=== PATIENT | male | born 1990 | race American Indian/Alaskan Native ===

== ENCOUNTER 2017-01-04 08:49 | Emergency (ER) | payer MEDICAID ==
[2017-01-04 09:03] VITALS: BP 127/84
[2017-01-04] MEDS ORDERED: DUONEB 0.5 MG-3 MG/3 ML SOLN IH ONE (09:37)
[2017-01-04] MEDS ORDERED: DELTASONE PO ONE (09:37)
--- NOTE | 2017-01-04 09:56 | XRay Report ---
ROUTINE CHEST, TWO VIEWS: HISTORY: chest pain. The trachea, heart, mediastinal contour, lung gomez and bony thorax are unremarkable. IMPRESSION: Unremarkable chest x-ray.
--- NOTE | 2017-01-04 10:41 | Emergency Department Report ---
Entered by MARCY CAN, acting as scribe for BRYANT ROGERS NP. - General Chief Complaint: Upper Respiratory Infection Stated Complaint: COLD/BLOOD IN MUCUS Time Seen by Provider: 01/04/17 09:32 Source: patient Mode of arrival: Ambulatory Limitations: No Limitations - History of Present Illness Initial Comments: 26 year old male with a PMHx of asthma presents to the ED of a cough with moderate amounts of blood in sputum secondary to nasal congestion that began one week ago. Reports that he felt a "bubbling" sensation in his chest last night. Patient states that he usually have two upper respiratory infections a year, but this episode he had blood in nasal mucous and sputum with cough. Associated symptoms includes wheezing and rhinorrhea, but he denies chest pain, fever/chills, nausea, vomiting, throat pain, and headaches. Notes that is currently out of refills for inhaler. CHICO TREJO Complaint: cough (with blood in sputum) Onset/Timin -: week(s) Severity: mild Quality: other ("bubbling" sensation in chest) Consistency: constant Context: other Associated Symptoms: rhinorrhea, nasal congestion, cough (with blood in sputum) , other (wheezing). denies: fever, chills, headache, sore throat, stiff neck, chest pain, nausea, vomiting Treatments Prior to Arrival: none - Related Data Previous Rx's Medication Instructions Recorded Last Taken Type ALBUTEROL NEB's [Proventil 0.083% 2.5 mg IH QID PRN #25 neb 01/04/17 Unknown Rx NEBS] Albuterol Sulfate [Ventolin HFA] 2 puff IH Q4H PRN #1 hfa.aer.ad 01/04/17 Unknown Rx Azithromycin [Zithromax] 250 mg PO DAILY #6 tablet 01/04/17 Unknown Rx Benzonatate [Tessalon Perles] 100 mg PO Q8HR PRN #12 capsule 01/04/17 Unknown Rx methylPREDNISolone [Medrol] 4 mg PO DAILY #1 tab.ds.pk 01/04/17 Unknown Rx Allergies Allergy/AdvReac Type Severity Reaction Status Date / Time No Known Allergies Allergy Unverified 02/27/14 16:58 ED Review of Systems Comment: All other systems reviewed and negative Constitutional: denies: chills, fever ENT: denies: throat pain Respiratory: cough (with blood in sputum), wheezing Cardiovascular: denies: chest pain (notes "bubbling" sensation in chest) Gastrointestinal: denies: nausea, vomiting Neurological: denies: headache ED Past Medical Hx - Past Medical History Previous Medical History?: Yes Hx Asthma: Yes - Surgical History Past Surgical History?: No - Social History Smoking Status: Never Smoker Substance Use Type: None - Medications Home Medications: Home Medications Medication Instructions Recorded Confirmed Last Taken Type ALBUTEROL NEB's [Proventil 0.083% 2.5 mg IH QID PRN #25 neb 01/04/17 Unknown Rx NEBS] Albuterol Sulfate [Ventolin HFA] 2 puff IH Q4H PRN #1 hfa.aer.ad 01/04/17 Unknown Rx Azithromycin [Zithromax] 250 mg PO DAILY #6 tablet 01/04/17 Unknown Rx Benzonatate [Tessalon Perles] 100 mg PO Q8HR PRN #12 capsule 01/04/17 Unknown Rx methylPREDNISolone [Medrol] 4 mg PO DAILY #1 tab.ds.pk 01/04/17 Unknown Rx ED Physical Exam - General Limitations: No Limitations General appearance: alert, in no apparent distress - Head Head exam: Present: atraumatic, normocephalic - Eye Eye exam: Present: normal appearance, PERRL, EOMI - ENT ENT exam: Present: normal exam, normal orophraynx, mucous membranes moist - Neck Neck exam: Present: normal inspection, full ROM. Absent: tenderness, lymphadenopathy - Respiratory Respiratory exam: Present: wheezes (inspiratory and expiratory wheezing Bilaterally). Absent: rales, rhonchi, stridor - Cardiovascular Cardiovascular Exam: Present: regular rate, normal rhythm - GI/Abdominal GI/Abdominal exam: Present: soft. Absent: distended, tenderness, guarding, rebound, rigid - Extremities Exam Extremities exam: Present: normal inspection, full ROM - Back Exam Back exam: Present: normal inspection, full ROM - Neurological Exam Neurological exam: Present: alert, oriented X3 - Psychiatric Psychiatric exam: Present: normal affect, normal mood - Skin Skin exam: Present: warm, dry, intact ED Course Vital Signs 01/04/17 01/04/17 01/04/17 09:00 10:12 10:21 Temperature 98.5 F Pulse Rate 80 92 H Respiratory 16 20 18 Rate Blood Pressure 127/84 O2 Sat by Pulse 98 94 Oximetry - Reevaluation(s) Reevaluation #1: 01/04/17 10:33 PT aware of XR result and plan of care. Pt's lung sounds improved but still has juan manuel exp wheezing. PT offered repeat neb but pt refused. PT States he feels better. PT states he has nebulizer at home. PT given strict return precautions. Reevaluation #2: 01/04/17 10:41 Pt's pulse ox 97% on RA and hr 86. - Pulse Oximetry Interpretation Digit-Finger Initial Pulse Oximetry Readin Actions Taken: none ED Medical Decision Making - Radiology Data Radiology results: report reviewed CXR-Nap - Medical Decision Making Given pt's hx of asthma and that he had a productive cough this morning with some bloody mucous, will treat as complex bronchitis with zithromax. - Differential Diagnosis asthma, uri, bronchitis Critical Care Time: No ED Disposition Clinical Impression: Bronchitis, Asthma exacerbation Disposition: DISCHARGED TO HOME OR SELFCARE Is pt being admited?: No Does the pt Need Aspirin: No Condition: Stable Instructions: Asthma (ED), Acute Bronchitis (ED) Prescriptions: ALBUTEROL NEB's [Proventil 0.083% NEBS] 2.5 mg IH QID PRN #25 neb PRN Reason: Wheezing Albuterol Sulfate [Ventolin HFA] 2 puff IH Q4H PRN #1 hfa.aer.ad PRN Reason: Shortness Of Breath Azithromycin [Zithromax] 250 mg PO DAILY #6 tablet Benzonatate [Tessalon Perles] 100 mg PO Q8HR PRN #12 capsule PRN Reason: Cough methylPREDNISolone [Medrol] 4 mg PO DAILY #1 tab.ds.pk Referrals: PRIMARY CAREMD [Primary Care Provider] - 3-5 Days LG OROZCO MD [Staff Physician] - 3-5 Days [facility] [Outside] - 3-5 Days [facility] [Outside] - 3-5 Days Time of Disposition: 10:36 This documentation as recorded by the JUAN JOSÉ tirado JASMINE,accurately reflects the service I personally performed and the decisions made by ,BRYANT ROGERS NP.
== END 2017-01-04 10:46 | disposition home or self-care (01) ==
LOC: ED 08:49
DX: J45.901 Unspecified asthma with (acute) exacerbation (principal)
CPT/HCPCS: 71020; 94640; 99283; J7512

== ENCOUNTER 2017-11-10 23:35 | Emergency (ER) | payer MEDICAID ==
[2017-11-11] MEDS ORDERED: TYLENOL ONE (00:52)
[2017-11-11] MEDS ORDERED: TYLENOL PO ONE (00:53)
--- NOTE | 2017-11-11 11:06 | Emergency Department Report ---
- General Chief complaint: Wound/Laceration Stated complaint: ABCESS IN GROIN AREA Time Seen by Provider: 11/11/17 10:54 Source: patient Mode of arrival: Ambulatory Limitations: No Limitations - History of Present Illness Initial comments: This is a 27-year-old male nontoxic, well nourished in appearance, no acute signs of distress presents to the ED with c/o of abscess to the left buttock region x1 week. Patient stated has history of this abscess in the same region but stated that he always refused incision and drainage. Patient stated he takes antibiotics and he resolves by itself. Patient denies any fever, chills, headache, nausea, vomiting, chest pain, shortness of breathe, abdominal pain, or back pain. Patient denies any allergies or PMH besides asthma. MD complaint: abscess/boil -: week(s) (1) Location: buttocks (left) Severity: mild Severity scale (0 -10): 8 Quality: aching Consistency: constant Improves with: none Worsens with: none Context: none Associated symptoms: denies other symptoms Treatments Prior to Arrival: none - Related Data Previous Rx's Medication Instructions Recorded Last Taken Type ALBUTEROL NEB's [Proventil 0.083% 2.5 mg IH QID PRN #25 neb 01/04/17 Unknown Rx NEBS] Albuterol Sulfate [Ventolin HFA] 2 puff IH Q4H PRN #1 hfa.aer.ad 01/04/17 Unknown Rx Azithromycin [Zithromax] 250 mg PO DAILY #6 tablet 01/04/17 Unknown Rx Benzonatate [Tessalon Perles] 100 mg PO Q8HR PRN #12 capsule 01/04/17 Unknown Rx methylPREDNISolone [Medrol] 4 mg PO DAILY #1 tab.ds.pk 01/04/17 Unknown Rx Clindamycin [Clindamycin CAP] 300 mg PO Q8H 7 Days cap 11/11/17 Unknown Rx Ibuprofen [Motrin] 600 mg PO Q8H PRN #30 tablet 11/11/17 Unknown Rx Allergies Allergy/AdvReac Type Severity Reaction Status Date / Time No Known Allergies Allergy Unverified 02/27/14 16:58 Abscess Boil HPI - HPI Chief Complaint: Wound/Laceration Stated Complaint: ABCESS IN GROIN AREA Time Seen by Provider: 02/14/18 10:54 Home Medications: Previous Rx's Medication Instructions Recorded Last Taken Type ALBUTEROL NEB's [Proventil 0.083% 2.5 mg IH QID PRN #25 neb 01/04/17 Unknown Rx NEBS] Albuterol Sulfate [Ventolin HFA] 2 puff IH Q4H PRN #1 hfa.aer.ad 01/04/17 Unknown Rx Azithromycin [Zithromax] 250 mg PO DAILY #6 tablet 01/04/17 Unknown Rx Benzonatate [Tessalon Perles] 100 mg PO Q8HR PRN #12 capsule 01/04/17 Unknown Rx methylPREDNISolone [Medrol] 4 mg PO DAILY #1 tab.ds.pk 01/04/17 Unknown Rx Clindamycin [Clindamycin CAP] 300 mg PO Q8H 7 Days cap 11/11/17 Unknown Rx Ibuprofen [Motrin] 600 mg PO Q8H PRN #30 tablet 11/11/17 Unknown Rx Allergies/Adverse Reactions: Allergies Allergy/AdvReac Type Severity Reaction Status Date / Time No Known Allergies Allergy Unverified 02/27/14 16:58 ED Review of Systems ROS: Stated complaint: ABCESS IN GROIN AREA Other details as noted in HPI Constitutional: denies: chills, fever Eyes: denies: eye pain, eye discharge, vision change ENT: denies: ear pain, throat pain Respiratory: denies: cough, shortness of breath, wheezing Cardiovascular: denies: chest pain, palpitations Endocrine: no symptoms reported Gastrointestinal: denies: abdominal pain, nausea, diarrhea Genitourinary: denies: urgency, dysuria Musculoskeletal: denies: back pain, joint swelling, arthralgia Skin: denies: rash, lesions Neurological: denies: headache, weakness, paresthesias Psychiatric: denies: anxiety, depression Hematological/Lymphatic: denies: easy bleeding, easy bruising ED Past Medical Hx - Past Medical History Previous Medical History?: Yes Hx Asthma: Yes - Surgical History Past Surgical History?: No - Social History Smoking Status: Former Smoker Substance Use Type: None - Medications Home Medications: Home Medications Medication Instructions Recorded Confirmed Last Taken Type ALBUTEROL NEB's [Proventil 0.083% 2.5 mg IH QID PRN #25 neb 01/04/17 Unknown Rx NEBS] Albuterol Sulfate [Ventolin HFA] 2 puff IH Q4H PRN #1 hfa.aer.ad 01/04/17 Unknown Rx Azithromycin [Zithromax] 250 mg PO DAILY #6 tablet 01/04/17 Unknown Rx Benzonatate [Tessalon Perles] 100 mg PO Q8HR PRN #12 capsule 01/04/17 Unknown Rx methylPREDNISolone [Medrol] 4 mg PO DAILY #1 tab.ds.pk 01/04/17 Unknown Rx Clindamycin [Clindamycin CAP] 300 mg PO Q8H 7 Days cap 11/11/17 Unknown Rx Ibuprofen [Motrin] 600 mg PO Q8H PRN #30 tablet 11/11/17 Unknown Rx ED Physical Exam - General Limitations: No Limitations General appearance: alert, in no apparent distress - Head Head exam: Present: atraumatic, normocephalic - Eye Eye exam: Present: normal appearance - ENT ENT exam: Present: mucous membranes moist - Neck Neck exam: Present: normal inspection - Respiratory Respiratory exam: Present: normal lung sounds bilaterally. Absent: respiratory distress - Cardiovascular Cardiovascular Exam: Present: regular rate, normal rhythm. Absent: systolic murmur, diastolic murmur, rubs, gallop - GI/Abdominal GI/Abdominal exam: Present: soft, normal bowel sounds - Rectal Rectal exam: Present: deferred - Extremities Exam Extremities exam: Present: normal inspection - Back Exam Back exam: Present: normal inspection - Neurological Exam Neurological exam: Present: alert, oriented X3 - Psychiatric Psychiatric exam: Present: normal affect, normal mood - Skin Skin exam: Present: warm, dry, intact, normal color. Absent: rash - Other Other exam information: Swelling with induration and fluctuance to the left buttock region. No pus or drainage noted. ED Course Vital Signs 11/11/17 11/11/17 00:45 00:55 Temperature 99.5 F Pulse Rate 89 Respiratory 18 18 Rate Blood Pressure 121/80 O2 Sat by Pulse 95 Oximetry - Reevaluation(s) Reevaluation #1: 11/11/17 11:02 Patient is speaking in full sentences with no signs of distress noted. ED Medical Decision Making - Medical Decision Making This is a 27-year-old male that presents with abscess. Patient is stable and was examined by me. Patient refused incision and drainage even after me explaining and educating to the patient that he must get an I/D for proper treatment. Patient still refused and stated he will start the antibiotics and if not resolved he will then return for I/D. Patient is discharged with Clinda. Patient was instructed to Follow-up with a primary care doctor in 3-5 days or if symptoms worsen and continue return to emergency room as soon as possible. At time of discharge, the patient does not seem toxic or ill in appearance. No acute signs of distress noted. Patient agrees to discharge treatment plan of care. No further questions noted by the patient. Critical care attestation.: If time is entered above; I have spent that time in minutes in the direct care of this critically ill patient, excluding procedure time. ED Disposition Clinical Impression: Abscess Disposition: DC-07 LEFT AGAINST MED ADVICE Is pt being admited?: No Does the pt Need Aspirin: No Condition: Stable Instructions: Clindamycin (By mouth), Ibuprofen (By mouth), Abscess (ED) Additional Instructions: Follow-up with a primary care doctor in 3-5 days or if symptoms worsen and continue return to emergency room as soon as possible. If symptoms worse you must return to the ED for incision and drainage Apply warm compressors to the area. Prescriptions: Clindamycin [Clindamycin CAP] 300 mg PO Q8H 7 Days cap Ibuprofen [Motrin] 600 mg PO Q8H PRN #30 tablet PRN Reason: Pain Referrals: MELYSSA GONSALEZ MD [Primary Care Provider] - 3-5 Days BENJAMIN ZAYAS MD [Staff Physician] - 3-5 Days [facility] [Outside] - 3-5 Days [facility] [Outside] - 3-5 Days Forms: Work/School Release Form(ED), AMA Form
[2017-11-11 11:41] VITALS: BP 118/74
== END 2017-11-11 11:35 | disposition left against medical advice (07) ==
LOC: ED 23:35
DX: L02.31 Cutaneous abscess of buttock (principal); J45.909 Unspecified asthma, uncomplicated
CPT/HCPCS: 99282

== ENCOUNTER 2017-12-25 12:49 | Emergency (ER) | payer MEDICAID ==
--- NOTE | 2017-12-25 15:56 | Emergency Department Report ---
ED Medical Clearance HPI - General Chief complaint: Medical Clearance Stated complaint: ALLERGIES/ASTHMA Time Seen by Provider: 12/25/17 15:48 Source: patient Mode of arrival: Ambulatory Home medications: Previous Rx's Medication Instructions Recorded Last Taken Type ALBUTEROL NEB's [Proventil 0.083% 2.5 mg IH QID PRN #25 neb 01/04/17 Unknown Rx NEBS] Albuterol Sulfate [Ventolin HFA] 2 puff IH Q4H PRN #1 hfa.aer.ad 01/04/17 Unknown Rx Azithromycin [Zithromax] 250 mg PO DAILY #6 tablet 01/04/17 Unknown Rx Benzonatate [Tessalon Perles] 100 mg PO Q8HR PRN #12 capsule 01/04/17 Unknown Rx methylPREDNISolone [Medrol] 4 mg PO DAILY #1 tab.ds.pk 01/04/17 Unknown Rx Clindamycin [Clindamycin CAP] 300 mg PO Q8H 7 Days cap 11/11/17 Unknown Rx Ibuprofen [Motrin] 600 mg PO Q8H PRN #30 tablet 11/11/17 Unknown Rx Albuterol Sulfate [Ventolin Hfa] 1 puff IH Q4H PRN #1 hfa.aer.ad 12/25/17 Unknown Rx Fluticasone [Flonase] 1 spray NS QDAY PRN #1 bottle 12/25/17 Unknown Rx Loratadine [Claritin] 10 mg PO DAILY #20 tablet 12/25/17 Unknown Rx predniSONE [Deltasone] 40 mg PO QDAY #10 tab 12/25/17 Unknown Rx Allergies/Adverse reactions: Allergies Allergy/AdvReac Type Severity Reaction Status Date / Time No Known Allergies Allergy Unverified 02/27/14 16:58 ED Review of Systems ROS: Stated complaint: ALLERGIES/ASTHMA Other details as noted in HPI ED Past Medical Hx - Past Medical History Hx Asthma: Yes - Surgical History Past Surgical History?: No - Social History Smoking Status: Never Smoker Substance Use Type: None - Medications Home Medications: Home Medications Medication Instructions Recorded Confirmed Last Taken Type ALBUTEROL NEB's [Proventil 0.083% 2.5 mg IH QID PRN #25 neb 01/04/17 Unknown Rx NEBS] Albuterol Sulfate [Ventolin HFA] 2 puff IH Q4H PRN #1 hfa.aer.ad 01/04/17 Unknown Rx Azithromycin [Zithromax] 250 mg PO DAILY #6 tablet 01/04/17 Unknown Rx Benzonatate [Tessalon Perles] 100 mg PO Q8HR PRN #12 capsule 01/04/17 Unknown Rx methylPREDNISolone [Medrol] 4 mg PO DAILY #1 tab.ds.pk 01/04/17 Unknown Rx Clindamycin [Clindamycin CAP] 300 mg PO Q8H 7 Days cap 11/11/17 Unknown Rx Ibuprofen [Motrin] 600 mg PO Q8H PRN #30 tablet 11/11/17 Unknown Rx Albuterol Sulfate [Ventolin Hfa] 1 puff IH Q4H PRN #1 hfa.aer.ad 12/25/17 Unknown Rx Fluticasone [Flonase] 1 spray NS QDAY PRN #1 bottle 12/25/17 Unknown Rx Loratadine [Claritin] 10 mg PO DAILY #20 tablet 12/25/17 Unknown Rx predniSONE [Deltasone] 40 mg PO QDAY #10 tab 12/25/17 Unknown Rx ED Physical Exam - General Limitations: No Limitations ED Course Vital Signs 12/25/17 13:03 Temperature 98.1 F Pulse Rate 86 Respiratory 16 Rate Blood Pressure 140/85 O2 Sat by Pulse 97 Oximetry ED Medical Decision Making - Medical Decision Making A/P: Medication refill 1-refill on albuterol 2-Claritin, Flonase when necessary 3-vital signs stable for discharge, follow up with primary care ED Disposition Clinical Impression: Medication refill Disposition: DC- TO HOME OR SELFCARE Is pt being admited?: No Does the pt Need Aspirin: No Condition: Stable Instructions: Allergic Rhinitis (ED) Prescriptions: Albuterol Sulfate [Ventolin Hfa] 1 puff IH Q4H PRN #1 hfa.aer.ad PRN Reason: Wheezing Fluticasone [Flonase] 1 spray NS QDAY PRN #1 bottle PRN Reason: Congestion Loratadine [Claritin] 10 mg PO DAILY #20 tablet predniSONE [Deltasone] 40 mg PO QDAY #10 tab Referrals: [facility] [Outside] - 3-5 Days [facility] [Outside] - 3-5 Days Forms: Work/School Release Form(ED), Accompanied Note Time of Disposition: 15:54
[2017-12-25 16:09] VITALS: BP 124/81
== END 2017-12-25 16:11 | disposition home or self-care (01) ==
LOC: ED 12:49
DX: J45.909 Unspecified asthma, uncomplicated (principal); Z76.0 Encounter for issue of repeat prescription
CPT/HCPCS: 99282

== ENCOUNTER 2018-03-23 07:15 | Emergency (ER) | payer MEDICAID ==
[2018-03-23 07:58] VITALS: BP 127/89
--- NOTE | 2018-03-23 10:14 | Emergency Department Report ---
ED Recheck HPI - General Chief Complaint: Medical Clearance Stated Complaint: ASTHMA Time Seen by Provider: 03/23/18 09:57 Source: patient Mode of arrival: Ambulatory Limitations: No Limitations - History of Present Illness Initial Comments: Patient here for refill on asthma medication.. He is asymptomatic but said he ran out of his asthma medication and usually when the pollen is high he gets asthma flareup and he does not want to get it and does not have his medication. He does not have a primary care physician. Patient takes albuterol. Denies any pain, shortness of breath, chest pain, cough or wheezing. Denies any nasal congestion or runny nose. Denies any nausea or vomiting. Denies any fever or chills. Patient medical record reviewed and he has been here in the past since 2013 for asthma. Complaint: medication refill request Onset/Timin (and out of medication) Initial Visit For: other (none) Returns Today for: request for prescription Description of Abnormal Result: He is here for asthma medication refill Symptoms Since Prior Visit: no new symptoms Context: ran out of medication Associated Symptoms: none Treatments Prior to Arrival: other (none) - Related Data Previous Rx's Medication Instructions Recorded Last Taken Type ALBUTEROL NEB's [Proventil 0.083% 2.5 mg IH QID PRN #25 neb 01/04/17 Unknown Rx NEBS] Azithromycin [Zithromax] 250 mg PO DAILY #6 tablet 01/04/17 Unknown Rx Benzonatate [Tessalon Perles] 100 mg PO Q8HR PRN #12 capsule 01/04/17 Unknown Rx methylPREDNISolone [Medrol] 4 mg PO DAILY #1 tab.ds.pk 01/04/17 Unknown Rx Clindamycin [Clindamycin CAP] 300 mg PO Q8H 7 Days cap 11/11/17 Unknown Rx Ibuprofen [Motrin] 600 mg PO Q8H PRN #30 tablet 11/11/17 Unknown Rx Albuterol Sulfate [Ventolin Hfa] 1 puff IH Q4H PRN #1 hfa.aer.ad 12/25/17 Unknown Rx Fluticasone [Flonase] 1 spray NS QDAY PRN #1 bottle 12/25/17 Unknown Rx Loratadine [Claritin] 10 mg PO DAILY #20 tablet 12/25/17 Unknown Rx predniSONE [Deltasone] 40 mg PO QDAY #10 tab 03/30/18 Unknown Rx Albuterol Sulfate [Ventolin HFA] 2 puff IH Q6H PRN #1 hfa.aer.ad 03/23/18 Unknown Rx Allergies Allergy/AdvReac Type Severity Reaction Status Date / Time No Known Allergies Allergy Unverified 02/27/14 16:58 ED Review of Systems ROS: Stated complaint: ASTHMA Other details as noted in HPI Constitutional: denies: chills, fever Eyes: denies: eye discharge ENT: denies: ear pain, throat pain, congestion Respiratory: denies: cough, shortness of breath, SOB with exertion, SOB at rest , stridor, wheezing Cardiovascular: denies: chest pain, palpitations, dyspnea on exertion, edema, syncope Musculoskeletal: denies: back pain, arthralgia Skin: denies: rash, lesions Neurological: denies: headache ED Past Medical Hx - Past Medical History Previous Medical History?: Yes Hx Asthma: Yes - Surgical History Past Surgical History?: No - Family History Family history: asthma, hypertension - Social History Smoking Status: Never Smoker Substance Use Type: None - Medications Home Medications: Home Medications Medication Instructions Recorded Confirmed Last Taken Type ALBUTEROL NEB's [Proventil 0.083% 2.5 mg IH QID PRN #25 neb 01/04/17 Unknown Rx NEBS] Azithromycin [Zithromax] 250 mg PO DAILY #6 tablet 01/04/17 Unknown Rx Benzonatate [Tessalon Perles] 100 mg PO Q8HR PRN #12 capsule 01/04/17 Unknown Rx methylPREDNISolone [Medrol] 4 mg PO DAILY #1 tab.ds.pk 01/04/17 Unknown Rx Clindamycin [Clindamycin CAP] 300 mg PO Q8H 7 Days cap 11/11/17 Unknown Rx Ibuprofen [Motrin] 600 mg PO Q8H PRN #30 tablet 11/11/17 Unknown Rx Albuterol Sulfate [Ventolin Hfa] 1 puff IH Q4H PRN #1 hfa.aer.ad 12/25/17 Unknown Rx Fluticasone [Flonase] 1 spray NS QDAY PRN #1 bottle 12/25/17 Unknown Rx Loratadine [Claritin] 10 mg PO DAILY #20 tablet 12/25/17 Unknown Rx predniSONE [Deltasone] 40 mg PO QDAY #10 tab 12/25/17 Unknown Rx Albuterol Sulfate [Ventolin HFA] 2 puff IH Q6H PRN #1 hfa.aer.ad 03/23/18 Unknown Rx ED Physical Exam - General Limitations: No Limitations General appearance: alert, in no apparent distress - Head Head exam: Present: atraumatic, normocephalic, normal inspection - Eye Eye exam: Present: normal appearance, PERRL, EOMI Pupils: Present: normal accommodation - ENT ENT exam: Present: normal exam, normal orophraynx, mucous membranes moist, TM's normal bilaterally, normal external ear exam - Neck Neck exam: Present: normal inspection, full ROM. Absent: tenderness, lymphadenopathy - Respiratory Respiratory exam: Present: normal lung sounds bilaterally. Absent: respiratory distress, wheezes, rales, rhonchi, stridor, chest wall tenderness, accessory muscle use, decreased breath sounds, prolonged expiratory - Cardiovascular Cardiovascular Exam: Present: regular rate, normal rhythm, normal heart sounds. Absent: systolic murmur, diastolic murmur - Extremities Exam Extremities exam: Present: normal inspection, full ROM, normal capillary refill , other (no clubbing, cyanosis or edema. +2 pulses to all extremities and no neurovascular compromise). Absent: tenderness, pedal edema, joint swelling, calf tenderness - Neurological Exam Neurological exam: Present: alert, oriented X3, normal gait - Psychiatric Psychiatric exam: Present: normal affect, normal mood - Skin Skin exam: Present: warm, dry, intact, normal color. Absent: rash ED Course Vital Signs 03/23/18 07:55 Temperature 98.2 F Pulse Rate 71 Respiratory 18 Rate Blood Pressure 127/89 O2 Sat by Pulse 98 Oximetry - Reevaluation(s) Reevaluation #1: 03/23/18 10:44 Patient is stable and he did not require any bronchodilator treatment in emergency room because he was not having an asthma flare. ED Recheck MDM - Medical Decision Making This is a 27-year-old male here reports that he has asthma and he ran out of his albuterol and he is here for refill on his medication because he doesn't want to have asthma attack without have an inhaler. He does not have access to primary care and a review of his medical records shows that he's been coming here since 2013 for asthma. Patient is not having any symptoms related to asthma or any other problems he just here for refill. Patient was examined by myself and physical exam is normal. I discussed with him medication and treatment plan and he voiced understanding. I also discussed with him that he needs to follow up with [facility] and I'll give him addressed and phone number to call to schedule appointment to see primary care to manage his chronic asthma. He voiced understanding. A/P 1: Patient with asthma and asymptomatic requiring medication refill and he is here for encounter refill on his albuterol. He is asymptomatic physical exam is normal and I will refill his albuterol. Patient educated on med medication and asthma. Patient discharged home in stable condition. Vital signs are stable, afebrile and is nontoxic in appearance. He said he is feeling fine. Patient instructed to follow up with [facility] in 2-3 days to call and schedule appointment for primary care visits to manage is asthma. He voiced understanding. Discharged home with prescription for albuterol. I told him if he has asthma attack and he does not have access to primary care that he needs to return to the emergency room and he voiced understanding Critical care attestation.: If time is entered above; I have spent that time in minutes in the direct care of this critically ill patient, excluding procedure time. ED Disposition Clinical Impression: Encounter for medication refill Disposition: DC-01 TO HOME OR SELFCARE Is pt being admited?: No Does the pt Need Aspirin: No Condition: Stable Instructions: Asthma (ED) Additional Instructions: These follow-up at [facility] in 2-3 days for primary care to manage her chronic asthma Take albuterol as prescribed but if he finds you use any more than twice a week then he'll need to have primary care reevaluate you to see if he need long acting medication to take daily Increase her fluid intake If he starts to have nasal congestion and runny nose then start taking Zyrtec and Flonase which you will be able to get [id number]. The skin turgor asthma attack Prescriptions: Albuterol Sulfate [Ventolin HFA] 2 puff IH Q6H PRN #1 hfa.aer.ad PRN Reason: cough and wheeze Referrals: [facility] [Outside] - 2-3 Days Forms: Work/School Release Form(ED)
== END 2018-03-23 10:52 | disposition home or self-care (01) ==
LOC: ED 07:15
DX: J45.909 Unspecified asthma, uncomplicated (principal); Z76.0 Encounter for issue of repeat prescription
CPT/HCPCS: 99282

== ENCOUNTER 2018-05-09 04:51 | Emergency (ER) | payer MEDICAID ==
[2018-05-09] MEDS ORDERED: DUONEB *Not for PRN Use IH ONE ×2 (04:54→05:16)
[2018-05-09] MEDS ORDERED: DELTASONE ONE (04:55)
--- NOTE | 2018-05-09 05:13 | Emergency Department Report ---
ED Asthma HPI - General Stated Complaint: ASTHMA Time Seen by Provider: 05/09/18 05:07 - History of Present Illness Initial Comments: 27-year-old man with history of asthma, awakened with wheezing this morning, approximately an hour or 2 prior to arrival, and comes to the emergency department, because he has out of his pump inhaler, which is his usual treatment for asthma attacks. He has not had any fever or chills or diaphoresis , no cough, no sputum production. He is in good general health otherwise, takes no weak in medications, does not smoke. He denies chest pain, and is short of breath only because of his wheezing. He has a prescription for nebulizer, but has not filled due to lack of funds, and requests only refill of pump inhaler because it still medication he can afford at this time. - Related Data Previous Rx's Medication Instructions Recorded Last Taken Type ALBUTEROL NEB's [Proventil 0.083% 2.5 mg IH QID PRN #25 neb 01/04/17 Unknown Rx NEBS] Azithromycin [Zithromax] 250 mg PO DAILY #6 tablet 01/04/17 Unknown Rx Benzonatate [Tessalon Perles] 100 mg PO Q8HR PRN #12 capsule 01/04/17 Unknown Rx methylPREDNISolone [Medrol] 4 mg PO DAILY #1 tab.ds.pk 01/04/17 Unknown Rx Clindamycin [Clindamycin CAP] 300 mg PO Q8H 7 Days cap 11/11/17 Unknown Rx Ibuprofen [Motrin] 600 mg PO Q8H PRN #30 tablet 11/11/17 Unknown Rx Albuterol Sulfate [Ventolin Hfa] 1 puff IH Q4H PRN #1 hfa.aer.ad 12/25/17 Unknown Rx Fluticasone [Flonase] 1 spray NS QDAY PRN #1 bottle 12/25/17 Unknown Rx Loratadine [Claritin] 10 mg PO DAILY #20 tablet 12/25/17 Unknown Rx predniSONE [Deltasone] 40 mg PO QDAY #10 tab 12/25/17 Unknown Rx Albuterol Sulfate [Ventolin HFA] 2 puff IH Q6H PRN #1 hfa.aer.ad 03/23/18 Unknown Rx ALBUTEROL Inhaler [ProAir HFA 2 puff IH QID PRN #2 inhalation 05/09/18 Unknown Rx Inhaler] Prednisone [predniSONE 10 mg 10 mg PO .TAPER #1 tab.ds.pk 05/09/18 Unknown Rx (6-Day Pack, 21 Tabs)] Allergies Allergy/AdvReac Type Severity Reaction Status Date / Time No Known Allergies Allergy Unverified 02/27/14 16:58 ED Review of Systems ROS: Stated complaint: ASTHMA Other details as noted in HPI Comment: All other systems reviewed and negative Constitutional: denies: chills, fever ENT: denies: ear pain, throat pain Respiratory: shortness of breath, wheezing. denies: cough, orthopnea Cardiovascular: denies: chest pain, syncope, paroxysmal nocturnal dyspnea Endocrine: no symptoms reported Gastrointestinal: denies: abdominal pain, nausea, diarrhea Genitourinary: denies: urgency, dysuria Musculoskeletal: denies: back pain, joint swelling, arthralgia Skin: denies: rash, lesions Neurological: denies: headache, weakness, paresthesias Psychiatric: denies: anxiety, depression ED Past Medical Hx - Past Medical History Hx Asthma: Yes - Social History Smoking Status: Never Smoker Substance Use Type: None - Medications Home Medications: Home Medications Medication Instructions Recorded Confirmed Last Taken Type ALBUTEROL NEB's [Proventil 0.083% 2.5 mg IH QID PRN #25 neb 01/04/17 Unknown Rx NEBS] Azithromycin [Zithromax] 250 mg PO DAILY #6 tablet 01/04/17 Unknown Rx Benzonatate [Tessalon Perles] 100 mg PO Q8HR PRN #12 capsule 01/04/17 Unknown Rx methylPREDNISolone [Medrol] 4 mg PO DAILY #1 tab.ds.pk 01/04/17 Unknown Rx Clindamycin [Clindamycin CAP] 300 mg PO Q8H 7 Days cap 11/11/17 Unknown Rx Ibuprofen [Motrin] 600 mg PO Q8H PRN #30 tablet 11/11/17 Unknown Rx Albuterol Sulfate [Ventolin Hfa] 1 puff IH Q4H PRN #1 hfa.aer.ad 12/25/17 Unknown Rx Fluticasone [Flonase] 1 spray NS QDAY PRN #1 bottle 12/25/17 Unknown Rx Loratadine [Claritin] 10 mg PO DAILY #20 tablet 12/25/17 Unknown Rx predniSONE [Deltasone] 40 mg PO QDAY #10 tab 12/25/17 Unknown Rx Albuterol Sulfate [Ventolin HFA] 2 puff IH Q6H PRN #1 hfa.aer.ad 03/23/18 Unknown Rx ALBUTEROL Inhaler [ProAir HFA 2 puff IH QID PRN #2 inhalation 05/09/18 Unknown Rx Inhaler] Prednisone [predniSONE 10 mg 10 mg PO .TAPER #1 tab.ds.pk 05/09/18 Unknown Rx (6-Day Pack, 21 Tabs)] ED Physical Exam - General Limitations: Other (mild shortness of breath, but able to speak full sentences) General appearance: alert, in distress (mild to moderate discomfort secondary to wheezing, but able to speak with minimal difficulty, full sentences) - Head Head exam: Present: atraumatic, normocephalic - Eye Eye exam: Present: PERRL, EOMI - ENT ENT exam: Present: normal exam, mucous membranes moist - Neck Neck exam: Present: normal inspection, full ROM. Absent: tenderness - Respiratory Respiratory exam: Present: normal lung sounds bilaterally, wheezes. Absent: respiratory distress, rales, rhonchi, chest wall tenderness, accessory muscle use - Cardiovascular Cardiovascular Exam: Present: regular rate, normal heart sounds - GI/Abdominal GI/Abdominal exam: Present: soft, normal bowel sounds. Absent: tenderness - Rectal Rectal exam: Present: deferred - Extremities Exam Extremities exam: Present: normal inspection - Back Exam Back exam: Present: normal inspection - Psychiatric Psychiatric exam: Present: normal affect, normal mood - Skin Skin exam: Present: warm, dry, intact ED Course Vital Signs 05/09/18 04:48 Temperature 36.7 C Pulse Rate 79 Respiratory 18 Rate Blood Pressure 110/72 O2 Sat by Pulse 98 Oximetry - Reevaluation(s) Reevaluation #1: 05/09/18 05:11 Improved after inhaled bronchodilation nebulizers with DuoNeb, also medicated with intravenous Solu-Medrol. ED Medical Decision Making - Medical Decision Making This patient has had an uncompensated asthma attack, and comes primarily because he does not have any more of his usual medication, which usually helps, and his last significant attack was approximately 6 weeks ago, when he was treated here. Patient significantly improved with nebulizer, and will be discharged with refill of his albuterol inhaler, and will be placed on a declining dose of prednisone over the next week. Critical care attestation.: If time is entered above; I have spent that time in minutes in the direct care of this critically ill patient, excluding procedure time. ED Disposition Clinical Impression: Asthma exacerbation Qualifiers: Asthma severity: moderate Asthma persistence: unspecified Qualified Code(s): J45.901 - Unspecified asthma with (acute) exacerbation Disposition: TO HOME OR SELFCARE Is pt being admited?: No Does the pt Need Aspirin: No Condition: Stable Instructions: Asthma (ED) Prescriptions: ALBUTEROL Inhaler [ProAir HFA Inhaler] 2 puff IH QID PRN #2 inhalation PRN Reason: Shortness Of Breath Prednisone [predniSONE 10 mg (6-Day Pack, 21 Tabs)] 10 mg PO .TAPER #1 tab.ds.pk Forms: Work/School Release Form(ED) Time of Disposition: 05:15
[2018-05-09] MEDS ORDERED: DELTASONE PO ONE (05:16)
[2018-05-09 05:37] VITALS: BP 117/84
== END 2018-05-09 05:40 | disposition home or self-care (01) ==
LOC: ED 04:51
DX: J45.901 Unspecified asthma with (acute) exacerbation (principal)
CPT/HCPCS: 94640; 99282; J7512

== ENCOUNTER 2018-05-14 13:20 | Emergency (ER) | payer SELFPAY ==
[2018-05-14 13:40] VITALS: BP 121/71
[2018-05-14 14:16] LABS: Bilirubin,Urine NEG (Negative); Blood,Urine NEG (Negative); Color,Urine Amber (Yellow); Mucus,Urine 3+ /HPF; RBC,Urine < 1.0 /HPF (0.0-6.0)
[2018-05-14] MEDS ORDERED: ZITHROMAX PO ONE (16:51)
[2018-05-14] MEDS ORDERED: ZOFRAN ODT PO ONE (16:51)
--- NOTE | 2018-05-14 16:56 | Emergency Department Report ---
ED General Adult HPI - General Chief complaint: Urogenital-Male Stated complaint: LEG PAIN Time Seen by Provider: 05/14/18 16:31 Source: patient Mode of arrival: Ambulatory Limitations: No Limitations - History of Present Illness Initial comments: Patient presents to the ED with a complaint of bilateral groin pain that started yesterday. Patient states he noticed the pain after taking a long walk. He states when he is at rest there is no pain medicine as he walks the pain returns. Patient is also concerned that last month he had unprotected intercourse and wants to be treated for STDs. Patient denies any penile discharge or dysuria. Patient has no other complaints -: Sudden Radiation: non-radiation Severity scale (0 -10): 3 Quality: aching Consistency: intermittent Improves with: rest Worsens with: movement Associated Symptoms: denies other symptoms Treatments Prior to Arrival: none - Related Data Previous Rx's Medication Instructions Recorded Last Taken Type ALBUTEROL NEB's [Proventil 0.083% 2.5 mg IH QID PRN #25 neb 01/04/17 Unknown Rx NEBS] Azithromycin [Zithromax] 250 mg PO DAILY #6 tablet 01/04/17 Unknown Rx Benzonatate [Tessalon Perles] 100 mg PO Q8HR PRN #12 capsule 01/04/17 Unknown Rx methylPREDNISolone [Medrol] 4 mg PO DAILY #1 tab.ds.pk 01/04/17 Unknown Rx Clindamycin [Clindamycin CAP] 300 mg PO Q8H 7 Days cap 11/11/17 Unknown Rx Ibuprofen [Motrin] 600 mg PO Q8H PRN #30 tablet 11/11/17 Unknown Rx Albuterol Sulfate [Ventolin Hfa] 1 puff IH Q4H PRN #1 hfa.aer.ad 12/25/17 Unknown Rx Fluticasone [Flonase] 1 spray NS QDAY PRN #1 bottle 12/25/17 Unknown Rx Loratadine [Claritin] 10 mg PO DAILY #20 tablet 12/25/17 Unknown Rx predniSONE [Deltasone] 40 mg PO QDAY #10 tab 12/25/17 Unknown Rx Albuterol Sulfate [Ventolin HFA] 2 puff IH Q6H PRN #1 hfa.aer.ad 03/23/18 Unknown Rx ALBUTEROL Inhaler [ProAir HFA 2 puff IH QID PRN #2 inhalation 05/09/18 Unknown Rx Inhaler] Prednisone [predniSONE 10 mg 10 mg PO .TAPER #1 tab.ds.pk 05/09/18 Unknown Rx (6-Day Pack, 21 Tabs)] ALBUTEROL Inhaler [ProAir HFA 2 puff IH QID PRN #1 inhalation 05/14/18 Unknown Rx Inhaler] Ibuprofen [Motrin] 800 mg PO Q8HR PRN #30 tablet 05/14/18 Unknown Rx predniSONE [Deltasone] 20 mg PO QDAY #5 tab 05/14/18 Unknown Rx Allergies Allergy/AdvReac Type Severity Reaction Status Date / Time No Known Allergies Allergy Unverified 02/27/14 16:58 ED Review of Systems ROS: Stated complaint: LEG PAIN Other details as noted in HPI Comment: All other systems reviewed and negative Constitutional: denies: chills, fever Eyes: denies: eye pain, eye discharge, vision change ENT: denies: ear pain, throat pain Respiratory: denies: cough, shortness of breath, wheezing Cardiovascular: denies: chest pain, palpitations Endocrine: no symptoms reported Gastrointestinal: denies: abdominal pain, nausea, diarrhea Genitourinary: denies: urgency, dysuria Musculoskeletal: denies: back pain, joint swelling, arthralgia Skin: denies: rash, lesions Neurological: denies: headache, weakness, paresthesias Psychiatric: denies: anxiety, depression Hematological/Lymphatic: denies: easy bleeding, easy bruising ED Past Medical Hx - Past Medical History Previous Medical History?: Yes Hx Asthma: Yes Additional medical history: daniella doherty 11/2017 - Surgical History Past Surgical History?: No - Social History Smoking Status: Never Smoker Substance Use Type: None - Medications Home Medications: Home Medications Medication Instructions Recorded Confirmed Last Taken Type ALBUTEROL NEB's [Proventil 0.083% 2.5 mg IH QID PRN #25 neb 01/04/17 Unknown Rx NEBS] Azithromycin [Zithromax] 250 mg PO DAILY #6 tablet 01/04/17 Unknown Rx Benzonatate [Tessalon Perles] 100 mg PO Q8HR PRN #12 capsule 01/04/17 Unknown Rx methylPREDNISolone [Medrol] 4 mg PO DAILY #1 tab.ds.pk 01/04/17 Unknown Rx Clindamycin [Clindamycin CAP] 300 mg PO Q8H 7 Days cap 11/11/17 Unknown Rx Ibuprofen [Motrin] 600 mg PO Q8H PRN #30 tablet 11/11/17 Unknown Rx Albuterol Sulfate [Ventolin Hfa] 1 puff IH Q4H PRN #1 hfa.aer.ad 12/25/17 Unknown Rx Fluticasone [Flonase] 1 spray NS QDAY PRN #1 bottle 12/25/17 Unknown Rx Loratadine [Claritin] 10 mg PO DAILY #20 tablet 12/25/17 Unknown Rx predniSONE [Deltasone] 40 mg PO QDAY #10 tab 12/25/17 Unknown Rx Albuterol Sulfate [Ventolin HFA] 2 puff IH Q6H PRN #1 hfa.aer.ad 03/23/18 Unknown Rx ALBUTEROL Inhaler [ProAir HFA 2 puff IH QID PRN #2 inhalation 05/09/18 Unknown Rx Inhaler] Prednisone [predniSONE 10 mg 10 mg PO .TAPER #1 tab.ds.pk 05/09/18 Unknown Rx (6-Day Pack, 21 Tabs)] ALBUTEROL Inhaler [ProAir HFA 2 puff IH QID PRN #1 inhalation 05/14/18 Unknown Rx Inhaler] Ibuprofen [Motrin] 800 mg PO Q8HR PRN #30 tablet 05/14/18 Unknown Rx predniSONE [Deltasone] 20 mg PO QDAY #5 tab 05/14/18 Unknown Rx ED Physical Exam - General Limitations: No Limitations General appearance: alert, in no apparent distress - Head Head exam: Present: atraumatic, normocephalic - Eye Eye exam: Present: normal appearance - ENT ENT exam: Present: mucous membranes moist - Neck Neck exam: Present: normal inspection - Respiratory Respiratory exam: Present: normal lung sounds bilaterally. Absent: respiratory distress - Cardiovascular Cardiovascular Exam: Present: regular rate, normal rhythm. Absent: systolic murmur, diastolic murmur, rubs, gallop - GI/Abdominal GI/Abdominal exam: Present: soft, normal bowel sounds - Rectal Rectal exam: Present: deferred - Extremities Exam Extremities exam: Present: normal inspection - Back Exam Back exam: Present: normal inspection - Neurological Exam Neurological exam: Present: alert, oriented X3, CN II-XII intact. Absent: motor sensory deficit - Psychiatric Psychiatric exam: Present: normal affect, normal mood - Skin Skin exam: Present: warm, dry, intact, normal color. Absent: rash - Other Other exam information: Palpation of the inguinal ligaments due to patient's jeans does elicit tenderness to the inguinal ligaments bilaterally No inguinal lymphadenopathy present on exam ED Course Vital Signs 05/14/18 13:33 Temperature 98.3 F Pulse Rate 94 H Respiratory 18 Rate Blood Pressure 121/71 O2 Sat by Pulse 98 Oximetry ED Medical Decision Making - Medical Decision Making Discussed with patient the plan of care Discussed safe sex practices with the patient Patient states they've out of his albuterol inhaler was wondering if we can prescribe it for him Critical care attestation.: If time is entered above; I have spent that time in minutes in the direct care of this critically ill patient, excluding procedure time. ED Disposition Clinical Impression: Groin pain Disposition: DC-01 TO HOME OR SELFCARE Is pt being admited?: No Does the pt Need Aspirin: No Condition: Stable Instructions: Ligament Sprain (ED) Additional Instructions: Inguinal Ligament strain return if worse Inguinal Ligament Pain: Causes, Symptoms, Stretches, and Treatment Tips By [employer] Editorial Team - January 27, 2017 Disclaimer: Results are not guaranteed and may vary from person to person. The simple actions of kicking a ball or running laps around a track can cause an inguinal ligament to become stressed and possibly tear. A strain can range from mild to severe, and characteristic inguinal ligament strain symptoms include discomfort, pain, and sometimes a popping sensation in the pelvic region. Most cases can be treated with specific stretching exercises and physical therapy. Learn the risks and what can be done for inguinal ligament pain in the comfort of your own home. What Does Inguinal Ligament Mean? The inguinal ligament is found in the abdominal wall, in the lower region of the abdomen and groin area. It is a group of tissue fibers banded together, running through the pelvis and stretching from the external oblique to the front of iliac spine. It is primarily responsible for supporting the blood vessels, nerves, veins, and arteries that travel through the pelvic region. The inguinal ligament also helps support the external oblique muscle, the tissues of the groin, and keeps the intestines in their proper location. This important ligament gives us the ability to move our hip bones and joints. What Is an Inguinal Ligament Strain? Based on the position and the role it plays in our body, the inguinal ligament is susceptible to trauma. A strain can happen with overuse or working the ligament in a repetitive motion over time. This stress on the inguinal ligament usually presents as pain in the groin region and can be divided into three type of strains. Grade I Grade I indicates the inguinal ligament strain is mild enough not to affect movement of the region, but does offer slight pain and discomfort of the groin region. Grade II This is referred to as a moderate range of strain, with a deal of difficulty in performing activities that may place pressure on the thighs. This can include running and jumping. A grade II inguinal ligament strain may offer pain along with swelling and bruising of the skin. Grade III When an inguinal ligament strain is diagnosed at this level, there is usually no possible movement of the lower extremities. There also may be muscle spasms. On the pain scale, this type can leave one in excruciating pain. Inguinal Ligament Strain Causes An inguinal ligament strain can be caused by varying factors that see the fibers of the ligament pulled and stretched beyond their capacity. 1. Sports Hernia This medical condition happens when tissue in the inguinal canal becomes damaged from repetitive movement or twisting. The actions of kicking, sprinting , and turning can create an environment of strain that eventually leads to tears , and possibly force the muscle to work itself away from the ligament. Despite the name, there is no actual herniation that occurs. This can present severe pain in the region, and is common in athletes in football, tennis, rugby, soccer , and hockey. A sports hernia is also referred to as a groin disruption or Gilm[place] Groin. 2. An inguinal ligament strain can also be caused by the pressure applied during the changes of a . The abdominal pavon are stretched, and the ligament is at risk for tearing during childbirth. If the woman has had multiple pregnancies, the ligament can become weak. What Is the Treatment for Inguinal Ligament Pain? Inguinal ligament strain treatment highly depends on the underlying cause and the severity of any damage to the ligament. The first 48 hours following a strain are crucial for successful treatment and proper healing. An ice compress on the groin region may target pain and inflammation. Any pain associated with a hernia affecting the inguinal ligament usually requires a surgery. It may be a procedure to graft the ligament with an artificial material for support. A grade I strain will require regular exercises such as walking to gently work the ligament to promote flexibility. Grade II strains treatment combines the use of heating compresses with leg exercises such as straight leg, hip rotation, abduction, and adduction movements. For grade III treatment, the tears may need to be repaired with surgery. Physical Therapy for Inguinal Ligament Strain In addition to the above inguinal ligament exercise treatments for the strain, physical therapy is highly recommended. Level 1 Using a stationary cycle, station the seat at the lowest position and resistance level. Avoid overdoing it. Groin stretches should also be performed five times each day with holds lasting 30 seconds. Level 2 The next level steps up the groin stretches to strengthen the ligament. Perform straight-leg raises by pulling the leg toward midline and then, away from the body. New exercises are introduced such as hip internal and external rotation and hip flexion. These are to be done every other day. Level 3 After one week of therapy, continue the stretches and exercises with increasing the repetitions each time. Also at this time, begin to reintroduce activities enjoyed before the strain. Inguinal Ligament Stretches Groin stretches are part of most treatment plans for an inguinal ligament strain. We have the top-used stretch exercises for the best results and a quick and safe recovery. 1. Supine Active Frog Stretch Follow this exercise for internal and external hip movements. On the floor, lie on the back with knees bent and feet pulled toward the buttocks. With arms out to the side, move legs outward until the bottom of the feet touch, keeping the knees bent. Take a deep breath and return the legs to starting position. Repeat 10 to 12 times for two sets of repetitions. 2. Hip Flexor with Shoulder Flexion Stretch the hip flexor while targeting the inguinal ligaments with this exercise. Stand with feet pointing in front and the right foot slightly behind the body. Clasp hands with palms facing the body and reach over the head. Clench the right buttock, and hold the position for five to six deep breaths. Repeat with the left leg behind body and left buttock clenched. 3. Overhead Lunges Strengthen hips and legs with this stretch. Stand with the right foot in front of the body, and lunge down as if to touch the floor with the left knee. Reach the arm over the head and exhale before returning to starting position. Repeat on the other leg, with three sets of eight repetitions on each side. 4. Step-Ups This exercise takes the lunge stretch to a higher level in more ways than one. Using an object two to three feet tall, such as a stool, place the left foot on the top while pushing off with right foot. Extend the right leg behind you, and hold for two seconds. Repeat on the other side with three sets of eight repetitions on each side. Inguinal ligament pain can be quite bothersome as it can affect mobility of the hips, thighs, and legs. Performing repetitive movements with sports, or even the natural stretching of the ligament during , can cause a serious strain to occur. Depending on the severity or type of the strain, there are specific stretching exercises to help strengthen the ligament. In more serious cases, surgery may be required to repair the inguinal ligament. Prescriptions: ALBUTEROL Inhaler [ProAir HFA Inhaler] 2 puff IH QID PRN #1 inhalation PRN Reason: Shortness Of Breath Ibuprofen [Motrin] 800 mg PO Q8HR PRN #30 tablet PRN Reason: pain predniSONE [Deltasone] 20 mg PO QDAY #5 tab Referrals: PRIMARY CARE, [Primary Care Provider] - 3-5 Days [facility] [Outside] - 3-5 Days [facility] [Outside] - 3-5 Days Time of Disposition: 16:58
== END 2018-05-14 17:25 | disposition home or self-care (01) ==
LOC: ED 13:20
DX: R10.30 Lower abdominal pain, unspecified (principal); J45.909 Unspecified asthma, uncomplicated; Z79.899 Other long term (current) drug therapy
CPT/HCPCS: 81001; 99283; Q0162

== ENCOUNTER 2018-10-22 14:35 | Emergency (ER) | payer MEDICAID ==
--- NOTE | 2018-10-22 16:52 | Emergency Department Report ---
ED Rash HPI - HPI Chief Complaint: Skin Rash Stated Complaint: RASH Time Seen by Provider: 10/22/18 16:43 Rash Symptoms: Yes Itching, No Facial Swelling, No Tongue/Oral Swelling, No Breathing Difficulties, No Choking Sensation, No Wheezing/Dyspnea, No Peeling, No Blistering, No Fever, No Lightheaded, No Malaise, No Myalgias Severity: mild Other History: Patient is a 28-year-old male who presents with dry itching rash on the evening of thighs/groin area. He states that rash is itchy ED Review of Systems ROS: Stated complaint: RASH Other details as noted in HPI Comment: All other systems reviewed and negative ED Past Medical Hx - Past Medical History Previous Medical History?: Yes Hx Asthma: Yes Additional medical history: daniella doherty 11/2017 - Surgical History Past Surgical History?: No - Social History Smoking Status: Never Smoker Substance Use Type: None - Medications Home Medications: Home Medications Medication Instructions Recorded Confirmed Last Taken Type ALBUTEROL NEB's [Proventil 0.083% 2.5 mg IH QID PRN #25 neb 01/04/17 Unknown Rx NEBS] Azithromycin [Zithromax] 250 mg PO DAILY #6 tablet 01/04/17 Unknown Rx Benzonatate [Tessalon Perles] 100 mg PO Q8HR PRN #12 capsule 01/04/17 Unknown Rx methylPREDNISolone [Medrol] 4 mg PO DAILY #1 tab.ds.pk 01/04/17 Unknown Rx Clindamycin [Clindamycin CAP] 300 mg PO Q8H 7 Days cap 11/11/17 Unknown Rx Ibuprofen [Motrin] 600 mg PO Q8H PRN #30 tablet 11/11/17 Unknown Rx Albuterol Sulfate [Ventolin Hfa] 1 puff IH Q4H PRN #1 hfa.aer.ad 12/25/17 Unknown Rx Fluticasone [Flonase] 1 spray NS QDAY PRN #1 bottle 12/25/17 Unknown Rx Loratadine [Claritin] 10 mg PO DAILY #20 tablet 12/25/17 Unknown Rx predniSONE [Deltasone] 40 mg PO QDAY #10 tab 12/25/17 Unknown Rx Albuterol Sulfate [Ventolin HFA] 2 puff IH Q6H PRN #1 hfa.aer.ad 03/23/18 Unknown Rx ALBUTEROL Inhaler (OR & NICU) 2 puff IH QID PRN #2 inhalation 05/09/18 Unknown Rx [ProAir HFA Inhaler] Prednisone [predniSONE 10 mg 10 mg PO .TAPER #1 tab.ds.pk 05/09/18 Unknown Rx (6-Day Pack, 21 Tabs)] ALBUTEROL Inhaler (OR & NICU) 2 puff IH QID PRN #1 inhalation 05/14/18 Unknown Rx [ProAir HFA Inhaler] Ibuprofen [Motrin] 800 mg PO Q8HR PRN #30 tablet 05/14/18 Unknown Rx predniSONE [Deltasone] 20 mg PO QDAY #5 tab 05/14/18 Unknown Rx Fluconazole [Diflucan TAB] 150 mg PO DAILY #7 tablet 10/22/18 Unknown Rx Nystatin Cream [Mycostatin Cream] 1 applic TP BID #1 tube 10/22/18 Unknown Rx Rash Exam - Exam General: Vital signs noted. No distress. Alert and acting appropriately. HEENT: No Periorbital Edema, No Conjuctival Injection, No Chemosis, No Perioral Edema, No Tongue Edema, No Uvular Edema, No Compromised Airway, No Drooling Lungs: Yes Good Air Exchange (Normal Breath Sounds), No Wheezes, No Ronchi, No Stridor, No Cough, No Labored Respirations, No Retractions, No Use of Accessory Muscles, No Other Abnormal Lung Sounds Heart: Yes Regular, No Murmur Skin: Yes Urticarial Rash, Yes Maculopapular Rash (in inner thighs), No Morbilliform rash, No Bulla(e), No Excoriations, No Weeping, No Tenderness, No Erythema, No Edema, No Encrustations, No Other Other: Positive: Abdomen Normal, Neurologic Normal, Musculoskeletal Normal ED Course Vital Signs 10/22/18 15:04 Temperature 98.9 F Pulse Rate 72 Respiratory 16 Rate Blood Pressure 129/87 O2 Sat by Pulse 98 Oximetry ED Medical Decision Making - Medical Decision Making 28-year-old male presents with jock itch Patient sent home with nystatin cream antifungal. Vital signs are normal patient is acute distress Discuss follow-up with primary care physician Critical care attestation.: If time is entered above; I have spent that time in minutes in the direct care of this critically ill patient, excluding procedure time. ED Disposition Clinical Impression: Jock itch Disposition: DC-01 TO HOME OR SELFCARE Is pt being admited?: No Does the pt Need Aspirin: No Condition: Stable Instructions: Antifungals (On the skin), Pete Itch (ED) Additional Instructions: Make sure to follow up with the primary care physician as discussed. Take all your medications as you've been prescribed. If you have any worsening symptoms or develop new symptoms please return to ED immediately. Prescriptions: Fluconazole [Diflucan TAB] 150 mg PO DAILY #7 tablet Nystatin Cream [Mycostatin Cream] 1 applic TP BID #1 tube Referrals: BENJAMIN HIDALGO MD [Primary Care Provider] - 3-5 Days Forms: Work/School Release Form(ED) Time of Disposition: 16:53
== END 2018-10-22 17:10 | disposition home or self-care (01) ==
LOC: ED 14:35
CPT/HCPCS: 99282